=== PATIENT | female | born 1995 | race Caucasian/White ===

== ENCOUNTER 2019-12-04 16:36 | Inpatient (IN) | payer OTHER ==
[~2019-12-04] VITALS: Ht 160 cm; Wt 70.3 kg
[2019-12-04] MEDS ORDERED: ONDANSETRON 4 MG/2 ML VIAL IV ONE ×2 (17:00→19:30)
[2019-12-04] MEDS ORDERED: IV NORMAL SALINE 1000 ML BAG IV ONE (17:00)
--- NOTE | 2019-12-04 17:00 | NUR ---
Patient refused COVID test.
--- NOTE | 2019-12-04 17:00 | NUR ---
Patient in bed monitor placed, VSS taken, IV stated and labs drawn.
[2019-12-04] MEDS ORDERED: ONDANSETRON 4 MG/2 ML VIAL ONE ×2 (17:01→19:25)
[2019-12-04 17:02] LABS: BASOPHILS # (AUTO) 0.1 K/uL (0.0-8.0); BASOPHILS % (AUTO) 0.6 % (0.0-2.0); EOSINOPHILS # (AUTO) 0.1 K/uL (0.0-0.7); EOSINOPHILS % (AUTO) 0.5 % (0.0-7.0); HEMATOCRIT 40.5 % (31.2-41.9); HEMOGLOBIN 13.7 g/dL (10.9-14.3); LYMPHOCYTES # (AUTO) 1.7 K/uL (20.0-40.0); MEAN CORPUSCULAR HEMOGLOBIN 30.7 uug (24.7-32.8); MEAN CORPUSCULAR HGB CONC 34 g/dL (32.3-35.6); MEAN CORPUSCULAR VOLUME 90.8 fL (75.5-95.3); MONOCYTES # (AUTO) 0.8 K/uL (2.0-10.0); MONOCYTES % (AUTO) 6.4 % (0.0-11.0); NEUTROPHILS # (AUTO) 9.5 K/uL (1.8-8.9); NEUTROPHILS % (AUTO) 78.5 % (38.5-71.5); PLATELET COUNT (AUTO) 406 K/uL (179-408); RED BLOOD CELL COUNT(AUTO) 4.46 MIL/uL (3.63-4.92); WHITE BLOOD COUNT (AUTO) 12.1 K/uL (3.8-11.8)
--- NOTE | 2019-12-04 17:10 | NUR ---
Antiametic given for nausea.
[2019-12-04 17:21] LABS: BILIRUBIN,DIRECT 0.2 mg/dL (0.0-0.2); BILIRUBIN,TOTAL 0.6 mg/dL (0.2-1.0); CREATININE 0.9 mg/dL (0.6-1.3); TOTAL PROTEIN, SERUM 7.8 g/dL (6.4-8.2)
[2019-12-04] MEDS ORDERED: METOCLOPRAMIDE HCL 10 MG/2 ML VIAL IV ONE (17:30)
[2019-12-04] MEDS ORDERED: diphenhydrAMINE 50 MG/1 ML VIAL IV ONE (17:30)
--- NOTE | 2019-12-04 17:30 | NUR ---
Dr. Hill at bedside assessing patient w/ RN at bedside.
--- NOTE | 2019-12-04 17:57 | NUR ---
Patient taken to CT.
[2019-12-04 17:58] LABS: ETHANOL < 3 MG/DL (0-0)
[2019-12-04 18:12] LABS: *AMPHETAMINE, URINE NEGATIVE (NEGATIVE); *BARBITURATE, URINE NEGATIVE (NEGATIVE); *CANNABINOID, URINE POSITIVE (NEGATIVE); *COCCAINE, URINE NEGATIVE (NEGATIVE); *OPIATE, URINE NEGATIVE (NEGATIVE); *PHENCYCLIDINE SCREEN,URINE NEGATIVE (NEGATIVE)
--- NOTE | 2019-12-04 18:12 | NUR ---
Patient returned from CT.
[2019-12-04] MEDS ORDERED: ATROPINE SULFATE 1 MG/10 ML DISP.SYRIN IV ONE (18:45)
[2019-12-04] MEDS ORDERED: ATROPINE SULFATE 1 MG/10 ML DISP.SYRIN ONE (18:56)
--- NOTE | 2019-12-04 19:02 | NUR ---
Endorsed patient to Columba HOWARD.
--- NOTE | 2019-12-04 19:46 | NUR ---
called for tele bed, spoke with Aleshia HOWARD, Room 304
--- NOTE | 2019-12-04 19:52 | NUR ---
Pt. admitted to Telemetry, under care of Parth Westfall. Diagnosis: Hematemesis/Intractable Vomiting. Belongs List completed.
[2019-12-04] MEDS ORDERED: MORPHINE SULFATE 2 MG/1 ML DISP.SYRIN IV PRN (20:00)
[2019-12-04] MEDS ORDERED: LORAZEPAM 2 MG/1 ML VIAL IV PRN (20:00)
[2019-12-04] MEDS ORDERED: ACETAMINOPHEN 325 MG TABLET PO PRN (20:00)
[2019-12-04] MEDS ORDERED: Z GUARD REMEDY PASTE 57 GM TUBE TOP PRN (20:00)
--- NOTE | 2019-12-04 20:04 | NUR ---
Patient is refusing covid testing.
[2019-12-04 20:08] LABS: BASOPHILS # (AUTO) 0.1 K/uL (0.0-8.0); BASOPHILS % (AUTO) 0.4 % (0.0-2.0); HEMATOCRIT 38.4 % (31.2-41.9); HEMOGLOBIN 12.9 g/dL (10.9-14.3); LYMPHOCYTES # (AUTO) 0.7 K/uL (20.0-40.0); LYMPHOCYTES % (AUTO) 5.2 % (20.5-51.5); MEAN CORPUSCULAR HEMOGLOBIN 30.8 uug (24.7-32.8); MEAN CORPUSCULAR HGB CONC 34 g/dL (32.3-35.6); MEAN CORPUSCULAR VOLUME 91.3 fL (75.5-95.3); MONOCYTES # (AUTO) 0.6 K/uL (2.0-10.0); MONOCYTES % (AUTO) 4.5 % (0.0-11.0); NEUTROPHILS # (AUTO) 12.9 K/uL (1.8-8.9); NEUTROPHILS % (AUTO) 89.9 % (38.5-71.5); PLATELET COUNT (AUTO) 367 K/uL (179-408); WHITE BLOOD COUNT (AUTO) 14.4 K/uL (3.8-11.8)
[2019-12-04 20:13] LABS: POTASSIUM 4.2 mmol/L (3.5-5.1)
[2019-12-04 22:00] VITALS: BP 152/48
[2019-12-04] MEDS: IV NS 1000 ML 1,000 ML IV PRN (23:25)
[2019-12-04] MEDS: ONDANSETRON 4 MG/2 ML VIAL IV PRN (23:31)
--- NOTE | 2019-12-05 03:20 | NUR ---
Admitted patient from ER under care of Mary Westfall. Patient arrived in the unit @2100 via gurney. Condition fair. Admitting diagnosis:severe nausea and vomiting. VSS. AAO x4, able to make needs known. No acute distress or SOB was noted. On room air. Patient was poor historian, the history taken from the medical record. Patient is NPO. IV line on her right AC G20, no sign of inflammation. IV NS 0.9% at rate 125 ml/hour started. Had several episodes of vomiting, blood tingled, moderate amount. IV Zofran 4 mg administered, was effective for one hour. Got anxious, Ativan 1 mg IV administered and effective. Patient refused MRSA screening swab. Safety measures maintained, Fall precaution observed. Bed in low and locked position. Call light within reach. Continue to monitor.
[2019-12-05 04:00] VITALS: BP 111/48
[2019-12-05] MEDS: ONDANSETRON 4 MG/2 ML VIAL IV PRN (05:25)
--- NOTE | 2019-12-05 05:30 | NUR ---
Patient started vomiting again, 2 episodes, watery, moderate amount. Zofran 4 mg administered. Continue to monitor.
--- NOTE | 2019-12-05 05:55 | NUR ---
Urine sample collected and sent to the lab.
[2019-12-05 06:33] LABS: *BILIRUBIN,URIN NEGATIVE (NEGATIVE); *BLOOD, URINE NEGATIVE (NEGATIVE); *CLARITY,URINE SLIGHTLY CLOUDY (CLEAR); *COLOR,URINE YELLOW (YELLOW); *KETONES,URINE 1+ (NEGATIVE); *UROBILINOGEN,URINE 0.2 E.U./dl (NORMAL); LEUKOCYTE ESTERASE ,URINE NEGATIVE (NEGATIVE); NITRITE, URINE NEGATIVE (NEGATIVE); UGLUCOSE NEGATIVE (NEGATIVE)
[2019-12-05 07:08] LABS: BASOPHILS % (AUTO) 0.3 % (0.0-2.0); HEMATOCRIT 35.2 % (31.2-41.9); HEMOGLOBIN 12.1 g/dL (10.9-14.3); LYMPHOCYTES # (AUTO) 1.2 K/uL (20.0-40.0); LYMPHOCYTES % (AUTO) 11.5 % (20.5-51.5); MEAN CORPUSCULAR HEMOGLOBIN 31.3 uug (24.7-32.8); MEAN CORPUSCULAR HGB CONC 34 g/dL (32.3-35.6); MEAN CORPUSCULAR VOLUME 91.3 fL (75.5-95.3); MONOCYTES # (AUTO) 0.5 K/uL (2.0-10.0); MONOCYTES % (AUTO) 5.1 % (0.0-11.0); NEUTROPHILS # (AUTO) 8.4 K/uL (1.8-8.9); NEUTROPHILS % (AUTO) 83.1 % (38.5-71.5); PLATELET COUNT (AUTO) 341 K/uL (179-408); RED BLOOD CELL COUNT(AUTO) 3.85 MIL/uL (3.63-4.92); WHITE BLOOD COUNT (AUTO) 10.1 K/uL (3.8-11.8)
[2019-12-05] MEDS: IV NS 1000 ML 1,000 ML IV PRN (07:37)
[2019-12-05 07:40] LABS: PHOSPHOROUS 3.6 mg/dL (2.5-4.9); POTASSIUM 3.7 mmol/L (3.5-5.1)
[2019-12-05] MEDS ORDERED: PANTOPRAZOLE SODIUM 40 MG VIAL IV SCH (09:00)
[2019-12-05] MEDS ORDERED: HYDR-4384 PO (10:35)
--- NOTE | 2019-12-05 10:53 | NUR ---
PATIENT IS ALERT, ORIENTED X4, NO SOB, RESP EVEN NONLABORED, SKIN WARM AND DRY TO TOUCH, NO DISTRESS NOTED, NO NAUSEA OR VOMITING NOTED SINCE MORNING, PATIENT ABLE TO TOLERATE LIGHT BREAKFAST, ASKED PATIENT ABOUT DISCHARGE, PATIENT STATED SHE IS GOING HOME TAF[place] HER FRIEND IS PICKING HER UP, PATIENT STATED SHE DOES NOT TAKE ANY MEDICATION, DISCHARGE INSTRUCTIONS GIVEN TO PATIENT AND PATIENT VERBALIZED UNDERSTANDING OF IT. DISCHARGE INSTRUCTIONS ENVELOP GIVEN TO PATIENT. ID BAND, IV REMOVED, BELONGINGS ARE ACCOUNTED AND SIGNED.
--- NOTE | 2019-12-05 10:58 | NUR ---
PATIENT IS WAITING FOR HER FRIEND ZAIDA TO COME AND PICK HER UP
[2019-12-05 11:34] VITALS: BP 107/53
--- NOTE | 2019-12-05 12:05 | NUR ---
patient discharged home, friend henrietta picked up patient, escorted patient to the car safely. patient is alert, oriented x4, ambulatory, no distress noted.
[2019-12-05 13:09] LABS: BACTERIA,URINE NONE SEEN /HPF (NONE SEEN); RBC,URINE 0-3 /HPF (0-3); SQUAMOUS EPITHELIAL CELL,UR FEW /HPF (NONE SEEN); WBC,URINE NONE SEEN /HPF (0-3)
[2019-12-05 13:10] LABS: URINE AMORPHOUS URATE MANY /HPF
== END 2019-12-05 12:10 | disposition home or self-care (01) | DRG 422 ==
LOC: ER 16:38 → TELE3 21:02 → MEDSURG3 12-05 00:10
PROVIDERS: ADMIT Nurse Practitioner Acute Care; ATTEND Nurse Practitioner Acute Care
DX: E86.0 Dehydration (principal); K21.9 Gastro-esophageal reflux disease without esophagitis; D72.829 Elevated white blood cell count, unspecified; E66.9 Obesity, unspecified; Z68.27 Body mass index [BMI] 27.0-27.9, adult; F12.10 Cannabis abuse, uncomplicated; R11.2 Nausea with vomiting, unspecified
CPT/HCPCS: 36415; 70450; 80307; 83690; 83735; 84100; 85025; 86850; 86900; 86901; 93005; A4663; C9113; G0378; G0480; J0461; J1200; J2060; J2405; J2765; J7030